=== PATIENT | female | born 1950 | race Caucasian/White ===

== ENCOUNTER → 2016-10-14 | Outpatient (CLI) | payer BC ==
[~2016-10-14] MED LIST: ALLERGY OTC PO; ASPI-391 PO; AZEL30SP NAE; CONJ0.3T3 PO; ESCI10TA17 PO; EZET10TA47 PO; FLNIN NAE; MULT-506 PO; NAPR1CAP12 PO; OXYC-57 PO; OXYC1TAB3 PO; PANT40TA PO; VENL75TA4 PO; WARF2TAB PO; ZOLP5TAB PO
== END | disposition home or self-care (01) ==
LOC: C.RDSM 14:16
PROVIDERS: ATTEND Physical Medicine & Rehabilitation Sports Medicine
DX: M17.11 Unilateral primary osteoarthritis, right knee (principal)

== ENCOUNTER → 2017-01-06 | Outpatient (CLI) | payer BC, OTHER ==
[~2017-01-06] MED LIST changes: -EZET10TA47 PO
--- NOTE | 2017-01-06 15:20 | DIAGNOSTIC IMAGING REPORT ---
RIGHT FINGER(S) MIN 2 VIEWS CLINICAL HISTORY: RIGHT 5TH FINGER INJURY Right trauma. Pain. COMPARISON: None. DISCUSSION: Fracture base middle phalanx right fifth finger. Fracture extends to the articular services. Moderate surrounding soft tissue edematous change. Potential early periosteal reaction or callus formation IMPRESSION: Subacute fracture base middle phalanx right fifth finger. Soft tissue edema. Potential early callus formation/periosteal reaction. The above report was generated using voice recognition software. It may contain grammatical, syntax or spelling errors. Electronically signed by: Lang Murillo M.D. 01/06/2017 3:18 PM Dictated Date/Time: 01/06/2017 3:17 PM
== END | disposition home or self-care (01) ==
LOC: C.RDSM 15:07
PROVIDERS: ATTEND Physician Assistant
DX: M79.644 Pain in right finger(s) (principal)

== ENCOUNTER 2017-01-29 05:31 | Inpatient (IN) | payer BC, OTHER ==
--- NOTE | 2016-10-28 09:31 | PAT Medication Instructions ---
Service Date October 28, 2016. Current Home Medication List Azelastine Hcl-Fluticasone Pro (Dymista), 1 SPRY DANIEL BID PRN for PRN Estrog Conj/Medryoxyprog Acet (Prempro 0.3MG/1.5MG), 1 TAB PO Q2D Fluticasone Propionate (Flonase Nasal [place]), 2 SPRAYS DANIEL DAILY PRN Multivitamin (Multivitamin), 1 TAB PO DAILY Naproxen Sodium (Aleve), 220 MG PO BID Pantoprazole Sodium (Protonix), 40 MG PO DAILY PRN Venlafaxine Hcl (Effexor), 19 MG PO HS Zolpidem Tartrate (Ambien), 2.5 MG PO HS [Allergy Otc], 1 TAB PO PRN Medication Instructions For Your Scheduled Surgery - Hold the following medications 7 days prior to surgery per surgeon instructions: Naproxen Sodium (Aleve), 220 MG PO BID - Hold the following medications the morning of surgery: Allergy Otc, 1 TAB PO PRN Multivitamin (Multivitamin), 1 TAB PO DAILY Estrog Conj/Medryoxyprog Acet (Prempro 0.3MG/1.5MG), 1 TAB PO Q2D - Take the following medications the morning of surgery with a sip of water: Pantoprazole Sodium (Protonix), 40 MG PO DAILY PRN Fluticasone Propionate (Flonase Nasal [place]), 2 SPRAYS DANIEL DAILY PRN Azelastine Hcl-Fluticasone Pro (Dymista), 1 SPRY DANIEL BID PRN for PRN - Take the following medications as scheduled the night before surgery: Venlafaxine Hcl (Effexor), 19 MG PO HS Zolpidem Tartrate (Ambien), 2.5 MG PO HS Azelastine Hcl-Fluticasone Pro (Dymista), 1 SPRY DANIEL BID PRN for PRN If you have any questions please call us at [phone] or [phone] ( [place]) or [phone]
[2016-10-28 10:09] LABS: BASO % 0.4 %; BASO ABS # 0.03 K/uL (0-0.2); COMPLETE YES; EOS % 2.6 %; HEMATOCRIT 43.7 % (37-47); IG% 0.3 %; LYMPH % 42.8 %; LYMPH ABS # 2.92 K/uL (1.2-3.4); MEAN CELL VOLUME 89.4 fL (80-100); MEAN CORPUSCULAR HGB CONC 32.5 g/dl (32-36); MEAN PLATELET VOLUME 10.7 fL (7.4-10.4); MONO % 8.2 %; NEUT % 45.7 %; PLATELET COUNT 238 K/uL (130-400); RED BLOOD COUNT 4.89 M/uL (4.2-5.4); WHITE BLOOD COUNT 6.82 K/uL (4.8-10.8)
[2016-10-28 10:11] LABS: URINE APPEARANCE CLEAR (CLEAR); URINE BILIRUBIN NEG (NEG); URINE COLOR YELLOW; URINE NITRITE NEG (NEG); URINE SPECIFIC GRAVITY 1.013 (1.000-1.030); UROBILINOGEN NEG (NEG); ZZUR CULT IF INDIC CLEAN CATCH NO
[2016-10-28 10:13] LABS: MANUAL MICROSCOPIC REQUIRED? NO; REVIEW REQ? NO
[2016-10-28 10:30] LABS: INR 0.9 (0.9-1.1); PROTHROMBIN TIME (PATIENT) 9.9 SECONDS (9.0-12.0)
--- NOTE | 2016-10-28 10:32 | DIAGNOSTIC IMAGING REPORT ---
CHEST PREADMISSION(PA/LAT) CLINICAL HISTORY: Preoperative chest COMPARISON STUDY: 10/15/2012 FINDINGS: The cardiac and mediastinal contours are normal. There is no evidence of focal pulmonary consolidation. There is no evidence of failure. No pleural effusions are visualized.[ IMPRESSION: No active disease in the chest. Electronically signed by: Douglas Herndon M.D. 10/28/2016 10:31 AM Dictated Date/Time: 10/28/2016 10:30 AM
[2016-10-28 10:56] LABS: BUN/CREATININE RATIO 24.3 (10-20); CALCIUM 9.7 mg/dl (8.5-10.1); CREATININE 0.99 mg/dl (0.60-1.20); POTASSIUM 4.1 mmol/L (3.5-5.1)
--- NOTE | 2016-10-30 10:04 | HISTORY & PHYSICAL EXAMINATION ---
DATE OF ADMISSION: 11/20/2016 CHIEF COMPLAINT: Right knee pain. HISTORY OF PRESENT ILLNESS: This 66-year-old white female presents to the office with complaints of right knee pain that she has had for over 2 years. Pain has become worse with time. No catching or locking. She has tried activity modification, oral anti-inflammatories, and viscosupplementation as well as oral pain medication without success. She elects to proceed with right total knee arthroplasty in hopes of alleviating her pain. Pain is worse with weightbearing. Worse with ambulation. It is affecting her ADLs. She has a history of left total knee arthroplasty and has done very well with that. She elects to proceed with the same on the right. Preoperative x-rays have been obtained. PAST MEDICAL HISTORY: Significant for basal cell carcinoma of the left face, history of melanoma, elevated lipids, history of anxiety, and osteoarthritis. PREVIOUS SURGERIES: , fallopian tube repair after ruptured tubal , left total knee arthroplasty, Mohs surgery. ALLERGIES: NKDA. CURRENT MEDICATIONS: Multivitamin daily, Effexor XR 75 mg, currently 19 mg daily, Aleve 1 tablet p.o. b.i.d. p.r.n., Prempro 0.3 mg/1.5 mg p.o. daily. 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 . No tobacco use, occasional ETOH use. FAMILY HISTORY: Significant for heart disease. REVIEW OF SYSTEMS: Significant for above stated conditions, otherwise unremarkable. PHYSICAL EXAMINATION: GENERAL: Well-developed, well-nourished elderly white female in no acute distress. Sitting on a chair. Alert and oriented. SKIN: Warm and dry with good turgor. No rashes or lesions. No ecchymosis or erythema. HEAD, EYES, EARS, NOSE, AND THROAT: Normocephalic, atraumatic. EYES: PERRLA, EOMI. Nares patent bilaterally without turbinate enlargement. Oropharynx without erythema or exudate. No lesions noted. Uvula midline. Oral mucosa moist. Good dentition. HEART: RRR. No MGR. LUNGS: Clear to auscultation bilaterally. No crackles, rhonchi or wheezing. Good air movement. ABDOMEN: Bowel sounds present x4, soft, nontender. No organomegaly. No masses. MUSCULOSKELETAL: Right knee reveals no intra-articular effusion. Full terminal extension. Flexion to greater than 100 degrees. Strength is 5/5 with fair quad tone. Focal pain with palpation over the medial joint line and the peripatellar area. No lateral joint line discomfort with palpation today. Crepitus is palpable with motion. Stable collateral ligaments. No defect in the patellar tendon or quadriceps tendon. Ambulatory with a slightly antalgic gait. NEUROLOGIC: Cranial nerves II through XII are intact. Gross sensation is intact across the lower extremities via soft touch. DATA: Radiographic images previously obtained was reviewed. She has significant joint space narrowing on the right knee. Narrowing is primarily medial. She has periarticular osteophytes, subchondral sclerosis, and joint space narrowing. There is mild lateral subluxation of the tibia on film. IMPRESSION: Right knee end-stage degenerative joint disease. PLAN: Informed written consent was obtained to proceed with right total knee arthroplasty. Postoperative prescriptions for Percocet and Coumadin will be provided at discharge from the hospital. Anticipate discharge to home with home health services. Prescription was provided for a rolling walker. Preoperative lab work, EKG, and chest x-ray have been ordered. She will obtain medical clearance from her PCP, Dr. Young.
[2017-01-06 16:42] LABS: BASO % 0.5 %; BASO ABS # 0.03 K/uL (0-0.2); COMPLETE YES; EOS % 2.9 %; HEMATOCRIT 41.7 % (37-47); IG% 0.3 %; LYMPH % 45.5 %; MEAN CELL VOLUME 87.8 fL (80-100); MEAN CORPUSCULAR HEMOGLOBIN 28.6 pg (25-34); MEAN CORPUSCULAR HGB CONC 32.6 g/dl (32-36); MEAN PLATELET VOLUME 10.4 fL (7.4-10.4); MONO % 7.3 %; NEUT % 43.5 %; PLATELET COUNT 221 K/uL (130-400); RED BLOOD COUNT 4.75 M/uL (4.2-5.4); WHITE BLOOD COUNT 5.93 K/uL (4.8-10.8)
[2017-01-06 16:57] LABS: INR 0.9 (0.9-1.1); PROTHROMBIN TIME (PATIENT) 9.9 SECONDS (9.0-12.0)
[2017-01-06 17:11] LABS: URINE APPEARANCE CLEAR (CLEAR); URINE BILIRUBIN NEG (NEG); URINE COLOR YELLOW; URINE NITRITE NEG (NEG); URINE SPECIFIC GRAVITY 1.018 (1.000-1.030); UROBILINOGEN NEG (NEG)
[2017-01-06 17:13] LABS: BUN/CREATININE RATIO 24.1 (10-20); CALCIUM 8.9 mg/dl (8.5-10.1); CREATININE 0.94 mg/dl (0.60-1.20); POTASSIUM 4.1 mmol/L (3.5-5.1)
[2017-01-06 17:28] LABS: MANUAL MICROSCOPIC REQUIRED? NO; REVIEW REQ? NO
--- NOTE | 2017-01-22 12:12 | HISTORY & PHYSICAL EXAMINATION ---
DATE OF ADMISSION: 01/29/2017 ATTENDING PHYSICIAN: Jesus Robbins MD FAMILY PHYSICIAN: Dr. Young. CHIEF COMPLAINT: Right knee pain. HISTORY OF PRESENT ILLNESS: The patient is a pleasant 66-year-old white female who presents to our office with complaints of right knee pain. She states that her knee pain has been bothering her for more than 2 years. Her pain has progressively worsened over time and expeditiously worsened over the last couple of months. She denies any catching or locking. She has tried conservative treatment, which has included activity modification, oral anti-inflammatories, viscous supplementation and oral pain medication without significant success. She has elected to proceed with an elective right total knee arthroplasty in hopes of alleviating her pain. Her pain is increased with weightbearing. She still does have pain at rest occasionally. Her pain affects her activities of daily living. She does have a history of having a left total knee arthroplasty and has done very well with this and she is hopeful for the same on the right. She is scheduled to undergo right total knee arthroplasty with Dr. Jesus Robbins on 01/29/2017. PAST MEDICAL HISTORY: 1. Basel cell carcinoma of the left side of her face. 2. History of melanoma. 3. Hyperlipidemia. 4. History of anxiety. 5. Osteoarthritis. PAST SURGICAL HISTORY: 1. History of . 2. Fallopian tube repair after ruptured tubal . 3. Status post left total knee arthroplasty. 4. Mohs surgery. CURRENT MEDICATIONS: 1. Multivitamin daily. 2. Effexor 75 mg daily. 3. Aleve 1 tab p.o. b.i.d. p.r.n. 4. Prempro 0.3 mg per 1.5 mg p.o. daily. ALLERGIES: She has no known drug allergies. 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 She is . Denies any alcohol, tobacco or drug use. FAMILY HISTORY: Significant for heart disease. REVIEW OF SYSTEMS: She denies any headaches, migraines, seizures, syncopal episodes, lightheadedness or dizziness. She denies any hearing problems or blurry vision. She denies any history of bleeding or clotting disorders, history of phlebitis, embolisms or DVT. She denies any chest pain, shortness of breath, or heart palpitations. She denies any abdominal pain, heartburn, indigestion, nausea, vomiting, diarrhea or constipation. She denies any urinary symptoms or frequent urinary tract infections. She denies any fevers, chills, changes in her weight. She denies any recent hospitalizations. PHYSICAL EXAMINATION: GENERAL: The patient is a well-developed and well-nourished female in no acute distress today. She is alert and oriented x3. She has normal mood and affect. HEENT: Head is normocephalic and atraumatic. Eyes: Extraocular movements intact. Pupils are equal, round and reactive to light. Sclerae are normal. Ears: Hearing is grossly normal. Clear ear canals with clear TMs with normal light reflex. Nose: Nares are patent bilaterally without turbinate enlargement. Oropharynx is clear without erythema or exudates. Uvula is midline. Oral mucosa is moist. Good dentition. HEART: Regular rate and rhythm. No murmurs appreciated. LUNGS: Clear to auscultation bilaterally. No adventitious sounds. No accessory muscle use. ABDOMEN: Soft, nontender, and nondistended. Bowel sounds heard in all 4 quadrants. MUSCULOSKELETAL: Right knee reveals no intraarticular effusion. Full terminal extension and flexion to greater than 100 degrees. Strength is 5/5 with fair quad tone. Focal pain with palpation of the medial joint line and the peripatellar area. No lateral joint line discomfort with palpation today. Crepitation is palpable with motion. Stable collateral ligaments. No defect in the patellar tendon or quadriceps tendon. Ambulatory with a slight antalgic gait with no assistive device. Exam of her left hand reveals a stiff left small finger at the PIP joint after sustaining an injury approximately 6 weeks ago. It is mildly tender to palpation. She has stiffness with extension and flexion. No significant deformity appreciated. Skin is intact. Capillary refill is brisk. Distal sensation is normal. RADIOLOGY IMAGES: Radiographic images previously obtained were reviewed of her bilateral knees. She has significant joint space narrowing of the right knee, primarily in the medial compartment. There are also periarticular osteophytes, subchondral sclerosis, and joint space narrowing present. There is a mild lateral subluxation of the tibia evident on the film. Radiology images of her left small finger show a subacute middle phalanx fracture in acceptable alignment with callus formation. The fracture line is still visible in places. ASSESSMENT: End-stage degenerative joint disease of her right knee. PLAN: The patient will be admitted to [facility] on 01/29/2017 and will undergo a right total knee arthroplasty with Dr. Jesus Robbins. Risks and complications of surgery were explained to the patient include, but are not limited to infection, pain, bleeding, scarring, nerve and blood vessel damage, wound problems, weakness, stiffness, incomplete relief of symptoms, blood clots, embolisms, hardware failure, wear, loosening, fracture, heart attack, stroke and . All questions were answered. Informed consent was obtained. She will be given Percocet for postoperative pain control. We will use Coumadin for DVT prophylaxis with an INR goal of 1.8-2.5. She will be on this 6 weeks postoperatively. She will have preadmission testing and obtain a preoperative CBC, PRP, PT, PTT, urinalysis and medical clearance from her family physician, Dr. Young. She previously had an EKG and chest x-ray back in October. Those do not need to be repeated. Postoperatively, she will remain in the hospital for approximately 2 days and we will ask the hospitalist to assist with any medical management as needed. Plan to discharge her home with home health services. All questions were answered today. She knows to call with any further problems or questions. MIRIAN
[~2017-01-29] VITALS: Ht 167.6 cm; Wt 85.3 kg
[2017-01-29] VITALS (7 sets, daily range): BP systolic 131–181; BP diastolic 64–85; PULSE 59–91; TEMP 36.5–36.8; O2SAT 95–99; Ht 167.6 cm; Wt 85.3 kg
[~2017-01-29 05:31] MED LIST changes: -ASPI-391 PO; -ESCI10TA17 PO; -OXYC-57 PO; -OXYC1TAB3 PO; -WARF2TAB PO
[2017-01-29] MEDS ORDERED: ESCI10TA17 PO (05:52)
[2017-01-29] MEDS ORDERED: ASPI-391 PO (05:54)
[2017-01-29] MEDS ORDERED: TRANEXAMIC ACID INJ 1,000 MG in SODIUM CHLORIDE 0.9% 100ML 100 ML IV SCH ×2 (06:00→16:00)
[2017-01-29] MEDS ORDERED: LACTATED RINGER'S 1000ML 500 ML IV ONE (06:00)
[2017-01-29] MEDS ORDERED: LACTATED RINGER'S 1000ML 1,000 ML IV SCH ×2 (06:00)
[2017-01-29] MEDS ORDERED: ROPIVACAINE 5MG/ML 30 ML 150 MG, BUPIVACAINE/EPINEPHR 0.5% MPF 30 ML, KETOROLAC TROMETH... INFIL SCH ×7 (06:00)
[2017-01-29] MEDS ORDERED: CEFAZOLIN 2000 MG/60 ML D5W 60 ML IV SCH (06:00)
--- NOTE | 2017-01-29 06:23 | History & Physical Bridge Note ---
H&P Re-Evaluation Bridge Note: I have examined the patient, reviewed the History & Physical and in the interval since the performance of the History & Physical I have noted the following changes of clinical significance: consent updated.no issues.finished UTI coverage.No changes noted
[2017-01-29] MEDS ORDERED: BUPIVACAINE 0.25% 30 ML VIAL ONE (06:26)
[2017-01-29] MEDS ORDERED: BUPIVACAINE 0.5 % 5 MG/1 ML PF 10ML VIAL ONE (06:26)
[2017-01-29] MEDS ORDERED: PROPOFOL IV EMULSION 10 MG/ML 20 ML VIAL IV ONE ×3 (06:27→08:24)
[2017-01-29] MEDS ORDERED: LIDOCAINE HCL 2% 2 ML VIAL (20MG/ML) ONE (06:27)
[2017-01-29] MEDS ORDERED: MIDAZOLAM HCL 1 MG/ML 2ML VIAL ONE (06:27)
[2017-01-29] MEDS ORDERED: ORTHO JOINT ANESTHETIC ONE (06:34)
[2017-01-29] MEDS ORDERED: POVIDONE-IODINE OP SOLN 30 ML BTL ONE (06:34)
[2017-01-29] MEDS ORDERED: EpHEDrine SULFATE 50MG/5ML SYR ONE (07:39)
[2017-01-29] MEDS ORDERED: KETAMINE HCL INJ 50 MG/ML 10 ML VIAL ONE (07:54)
[2017-01-29] MEDS ORDERED: SODIUM CHLORIDE 0.9% INJ 10 ML VIAL ONE (07:56)
[2017-01-29] MEDS ORDERED: EpHEDrine SULFATE INJ 50 MG/ML AMP IV PRN (08:15)
[2017-01-29] MEDS ORDERED: ATROPINE SULFATE 0.1 MG/ML 5ML SYR IV PRN (08:15)
[2017-01-29] MEDS ORDERED: ONDANSETRON INJ 2 MG/ML 2 ML VIAL IV PRN ×2 (08:15→08:45)
--- NOTE | 2017-01-29 08:33 | [facility] Post Operative Brief Note ---
Immediate Operative Summary Operative Date Jan 29, 2017. Pre-Operative Diagnosis End-Stage Degenerative Joint Disease Right Knee Post-Operative Diagnosis End-Stage Degenerative Joint Disease Right Knee Procedure(s) Performed Right Total Knee Arthroplasty Surgeon Dr. Robbins Piano Instructor Surgeon(s) LUKAS Nina Estimated Blood Loss 50cc Findings severe djd medially Fluids (cc crystalloids) 1200cc Specimens A. Right Knee Bone and Tissue Drains none Anesthesia spinal/sedation Complication(s) None Disposition Recovery Room / PACU
[2017-01-29] MEDS ORDERED: FLUTICASONE PROPIONATE NA SPR 16 GM BTL NAE PRN (08:45)
[2017-01-29] MEDS ORDERED: METOCLOPRAMIDE HCL INJ 5 MG/ML 2 ML VIAL IV PRN (08:45)
[2017-01-29] MEDS ORDERED: DiphenhydrAMINE HCL 50 MG/ML VIAL IV PRN (08:45)
[2017-01-29] MEDS ORDERED: MAGNESIUM HYDROXIDE SUSP 30 ML UDC PO PRN (08:45)
[2017-01-29] MEDS ORDERED: MoRPHine SULFATE 2 MG/ML CARP IV PRN (08:45)
[2017-01-29] MEDS ORDERED: ACETAMINOPHEN IV 100 ML IV PRN (08:45)
[2017-01-29] MEDS ORDERED: ALUMINUM/MAGNESIUM/SIMETH (MAALOX MAX) 30 ML UDC PO PRN (08:45)
[2017-01-29] MEDS ORDERED: ACETAMINOPHEN 325 MG TAB PO PRN (08:45)
[2017-01-29] MEDS ORDERED: BISACODYL 10 MG SUPP PR PRN (08:45)
--- NOTE | 2017-01-29 08:45 | OPERATIVE REPORT ---
DATE OF OPERATION: 01/29/2017 PREOPERATIVE DIAGNOSIS: Severe osteoarthritis, right knee with varus flexion deformity. POSTOPERATIVE DIAGNOSIS: Same. OPERATION PERFORMED: Cemented right total knee replacement. SURGEON: Dr. Robbins. RAIL CAR PAINTER/SANDBLASTER: Kristopher Youssef PA-C. No resident or fellow available. SUMMARY OF IMPLANTS: Size 3 posterior cruciate substituting femur, size 3 rotating tibial keel platform. Oval domed 3 pegged patella size 35, tibial insert size 3 12.5 and 2 bags of Palacos G cement. ESTIMATED BLOOD LOSS: 50 mL. CRYSTALLOID: 1200 mL. PERIOPERATIVE SITUATION: Medically cleared female with intractable knee pain with x-rays revealing end-stage disease, medial joint space narrowing, varus deformity, lateral subluxation of the tibia and patellofemoral disease. OPERATION AND FINDINGS: OPERATION: The patient appropriately identified, site verified, consent verified, 2 grams of Ancef confirmed as being given. The right lower extremity was prepped and draped in usual routine fashion. Tourniquet was inflated to 300 mmHg after exsanguination of the limb with a rubber Esmarch bandage for a total of approximately 55 minutes. Midline exposure was utilized. Parapatellar arthrotomy performed. Synovectomy completed. Appropriate soft tissue releases and osteophytes resected. Distal femur was then resected 14 mm, proximal tibia then resected 4 mm. The extension gap was excellent. This femur was sized just over 3, was measured that and cut 3. There was no notching. The flexion gap was then checked. It was a little tight medially. After appropriate soft tissue releases it was excellent. The femur was then cut, anterior and posterior condylar and chamfer cuts and the box cut made and the size 3 fit well. The tibia was then broached and reamed to a size 3 and 10 and 12.5 mm spacer were trialed. The 12.5 gave a little bit more flexion stability in deep flexion, so that was elected. It did not eliminate any extension. The patella was sized to a 35. It was resected leaving 16 mm. The trial tracked extremely well. All trial implants were then removed. The wound was irrigated with Betadine Pulsavac injected with Orthomix and then the permanents cemented into position. After 12 minutes, the tourniquet deflated. After 14 minutes the knee flexed. Minor cement removal and irrigation occurred and then the permanent liner seated. The knee reduced and closed with #1 Ethibond, #1 Vicryl, 2-0 Vicryl and stainless steel clips. Appropriate soft tissue dressing applied and the patient transferred to recovery room in satisfactory condition having tolerated the procedure well. DVT prophylaxis per protocol. I attest to the content of the Intraoperative Record and any orders documented therein. Any exception s are noted below.
[2017-01-29] MEDS ORDERED: ZOLPIDEM TARTRATE 5 MG TAB PO PRN ×2 (09:00→21:00)
[2017-01-29] MEDS: PANTOprazole SOD 40 MG TAB PO SCH (09:00)
[2017-01-29] MEDS ORDERED: MoRPHine SULFATE 4 MG/ML 1 ML CARP\\VIAL IV PRN (09:00)
--- NOTE | 2017-01-29 09:32 | Anesthesiology Progress Note ---
Anesthesia Post Op Note Date & Time Jan 29, 2017 at 09:32 Vital Signs Pain Intensity: 0 Vital Signs Past 12 Hours Date Time Temp Pulse Resp B/P (MAP) Pulse Ox O2 Delivery O2 Flow Rate FiO2 01/29/17 09:13 36.9 62 18 127/61 (78) 97 Room Air 01/29/17 08:57 67 21 92 01/29/17 08:57 68 21 01/29/17 08:56 126/59 01/29/17 08:52 62 10 01/29/17 08:52 61 10 98 01/29/17 08:51 107/57 01/29/17 08:47 69 21 01/29/17 08:47 68 21 91 01/29/17 08:46 130/94 01/29/17 08:43 120/55 01/29/17 08:42 74 19 01/29/17 08:42 36.2 76 18 120/55 93 Room Air 01/29/17 08:42 72 19 95 01/29/17 05:55 36.5 59 18 153/82 Room Air 98 Notes Mental Status: alert / awake / arousable, participated in evaluation Pt Amnestic to Procedure: Yes Nausea / Vomiting: adequately controlled Pain: adequately controlled Airway Patency, RR, SpO2: stable & adequate BP & HR: stable & adequate Hydration State: stable & adequate Neuraxial Anesthesia: was administered, sensory block is resolving Anesthetic Complications: no major complications apparent
--- NOTE | 2017-01-29 09:33 | DIAGNOSTIC IMAGING REPORT ---
RIGHT KNEE 1 OR 2 VIEWS ROUTINE CLINICAL HISTORY: Postoperative evaluation. COMPARISON: Right knee radiographs October 14, 2016. FINDINGS: Alignment of the total right knee arthroplasty is anatomic. There is no periprosthetic fracture or unexpected radiopaque foreign body. Skin meg are present. IMPRESSION: Expected findings following total right knee arthroplasty. Electronically signed by: Horace Mann M.D. 01/29/2017 9:32 AM Dictated Date/Time: 01/29/2017 9:29 AM
[2017-01-29] MEDS ORDERED: D5W AND 1/2NSS + 20MEQ KCL 1,000 ML IV SCH (10:30)
[2017-01-29] MEDS: OXYCODONE HCL IR 5 MG TAB (IMMEDIATE RELEASE) PO PRN ×4 (11:48→20:57)
[2017-01-29] MEDS: FERROUS GLUCONATE 324 MG TAB PO SCH ×2 (11:51→17:39)
[2017-01-29] MEDS: DOCUSATE SODIUM 100 MG CAP PO SCH ×2 (11:51→20:58)
[2017-01-29] MEDS: MULTIVITAMIN TAB PO SCH (11:51)
[2017-01-29] MEDS: KETOROLAC TROMETHAMINE 15 MG/ML VIAL IV. SCH ×3 (11:51→23:30)
--- NOTE | 2017-01-29 13:21 | [facility] Operative Report ---
Operative Report Operative Date Jan 29, 2017. Pre-Operative Diagnosis End-Stage Degenerative Joint Disease Right Knee Post-Operative Diagnosis End-Stage Degenerative Joint Disease Right Knee Procedure(s) Performed Right Total Knee Arthroplasty Surgeon Dr. Robbins Electrical Calibrator Surgeon(s) LUKAS Nina Estimated Blood Loss 50cc Findings Right knee DJD Fluids 1200cc Specimens A. Right Knee Bone and Tissue Drains none Anesthesia spinal/sedation Complication(s) None Disposition Recovery Room / PACU Indications This 66-year-old white female presented to the office complaints of intractable right knee pain. She previously underwent left total knee arthroplasty and did well with that. She elected to proceed with the same on the right. She had tried conservative care including activity modification, oral anti- inflammatories, viscous supplementation, cortisone injections, and oral pain medication without success. Preoperative imaging was obtained. Description of Procedure Patient was administered a spinal anesthetic and then taken to the operating room where she was given sedation. She was prepped and draped in usual sterile fashion. Please see Dr. Robbins's operative report for specifics of the procedure. I was present for the entire case from initial patient positioning through final wound closure. Assistance was provided in tissue traction, hemostasis, trial implant placement, final implant placement, and final wound closure. Patient was taken to the recovery room in satisfactory condition. I attest to the content of the Intraoperative Record and any orders documented therein. Any exceptions are noted below.
--- NOTE | 2017-01-29 13:38 | Progress Note ---
Progress Note Date of Service Jan 29, 2017. Progress Note Postop check. She is doing well is no major issues. She denies headache shortness breath fever chills nausea or vomiting. Vital signs are stable she's afebrile. Neurovascular check femoral sciatic nerve is normal. Wound dressing clean dry and intact. Can do a straight leg raise. Postop x-rays looked excellent. Assessment doing well status post right total knee replacement continue with care pathway.
[2017-01-29] MEDS ORDERED: OXYC-57 PO (15:21)
[2017-01-29] MEDS ORDERED: WARF2TAB PO (15:21)
[2017-01-29] MEDS: CEFAZOLIN IV 2,000 MG in DEXTROSE 5% 50ML 50 ML IV SCH ×2 (15:44→23:31)
[2017-01-29] MEDS ORDERED: WARFARIN SOD 5 MG TAB PO SCH (16:00)
[2017-01-29] MEDS ORDERED: ESCITALOPRAM OXALATE 10 MG TAB PO SCH (21:00)
[2017-01-30] MEDS: OXYCODONE HCL IR 5 MG TAB (IMMEDIATE RELEASE) PO PRN ×2 (01:04→07:46)
[2017-01-30 03:00] VITALS: BP 125/72; PULSE 84; TEMP 36.8; O2SAT 94
[2017-01-30] MEDS: KETOROLAC TROMETHAMINE 15 MG/ML VIAL IV. SCH (05:31)
[2017-01-30 05:44] LABS: HEMATOCRIT 34.7 % (37-47); MEAN CELL VOLUME 88.5 fL (80-100); MEAN CORPUSCULAR HEMOGLOBIN 29.3 pg (25-34); MEAN CORPUSCULAR HGB CONC 33.1 g/dl (32-36); MEAN PLATELET VOLUME 10.8 fL (7.4-10.4); PLATELET COUNT 184 K/uL (130-400); RED BLOOD COUNT 3.92 M/uL (4.2-5.4); WHITE BLOOD COUNT 8.82 K/uL (4.8-10.8)
[2017-01-30 05:51] LABS: PROTHROMBIN TIME (PATIENT) 11.1 SECONDS (9.0-12.0)
[2017-01-30 06:16] LABS: BUN/CREATININE RATIO 17.4 (10-20); CALCIUM 8.3 mg/dl (8.5-10.1); CREATININE 0.99 mg/dl (0.60-1.20); POTASSIUM 3.9 mmol/L (3.5-5.1)
--- NOTE | 2017-01-30 06:59 | PROGRESS NOTE ---
DATE: 01/30/2017 Postop day #1 status post right total knee replacement. The patient denies chest pain, shortness of breath, fevers, chills, nausea, vomiting. Vital signs are stable. She is afebrile. Neurovascular check is within normal limits, femoral sciatic nerve. Hematocrit stable in the mid 30 range. Electrolytes stable. INR is 1.0. ASSESSMENT: Doing well status post right total knee replacement. Discharge today. Social service PT, OT, urgent consults, Coumadin 4 mg at discharge, per INR today. Give dose before leaving and then start 4 mg daily on Friday, check INR on Friday.
--- NOTE | 2017-01-30 07:03 | DISCHARGE SUMMARY ---
CHIEF COMPLAINT: Right knee pain. HISTORY OF PRESENT ILLNESS: The patient underwent elective right total knee replacement. At this point in time her hospital course has been uneventful. She is ambulating. She is eating, drinking. She has no nausea or vomiting. PAST MEDICAL HISTORY: Remarkable for basal cell carcinoma, history of melanoma, elevated lipids, history of anxiety, osteoarthritis. PAST SURGICAL HISTORY: Includes , fallopian tube repair after ruptured tubal , left total knee replacement and Mohs surgery. ALLERGIES: None. PREADMISSION MEDICATIONS: Include multivitamin, Effexor, Aleve and Prempro. She will discontinue the Aleve, add p.r.n. Percocet and Coumadin 4 mg daily. 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 She is . She does no tobacco or alcohol. REVIEW OF SYSTEMS: Reveals no chest pain, shortness of breath, fevers, chills, nausea or vomiting. ASSESSMENT: Overall, doing well status post total knee replacement, right. Will discharge to home today. Home services Coumadin 4 mg daily, keep INR 1.8-2.2. She will receive a dose of Coumadin today prior to discharge per nomogram and then transition to 4 mg on Friday, Friday, and Friday and check INR on Friday. well services operator, PT, OT to see prior to discharge.
[2017-01-30 07:22] VITALS: BP 106/65; PULSE 65; TEMP 36.9; O2SAT 96
[2017-01-30] MEDS ORDERED: DEXAMETHASONE INJ 10 MG in SYRINGE 0 ML IV SCH (07:30)
[2017-01-30] MEDS: PANTOprazole SOD 40 MG TAB PO SCH (07:46)
[2017-01-30] MEDS: DOCUSATE SODIUM 100 MG CAP PO SCH (07:47)
[2017-01-30] MEDS: FERROUS GLUCONATE 324 MG TAB PO SCH (07:47)
[2017-01-30] MEDS: MULTIVITAMIN TAB PO SCH (07:47)
[2017-01-30] MEDS ORDERED: OXYC1TAB3 PO (08:21)
--- NOTE | 2017-01-30 08:22 | Discharge Instructions ---
Discharge Instructions Date of Service Jan 29, 2017. Admission Reason for Admission: Right Knee Degenerative Joint Disease Discharge Discharge Diagnosis / Problem: Right knee s/p total knee replacement Discharge Goals Goal(s): Decrease discomfort, Improve function, Increase independence Activity Recommendations Activity Limitations: as noted below Lifting Limitations: gradually increase as tolerated Exercise/Sports Limitations: until after follow-up appointment Shower/Bathe: keep incision dry Driving or Machine Use: No driving until cleared by Dr. Robbins Weightbearing Status: Right weightbearing (as tolerated) . Instructions / Follow-Up Instructions / Follow-Up New Medicine: * You will likely be taking one or more of these medications: 1. Percocet - Take, as directed, when you need it, every four to six hours to control your pain. 2. Coumadin - Thins your blood to lessen the chance of forming a blood clot. The dose of this is different for each person and is based on your blood tests that are done twice a week. * The most common side effects of pain medicine and iron are nausea and constipation. If nausea or constipation is too much of a problem or if you have any questions about your new medicines or doses, call [facility] at . We will try to help you manage these issues. VERY IMPORTANT TO READ AND REVIEW" Blood Clots and Blood Thinning Medicine: * You are given Coumadin during the immediate post-operative period to lessen the risk of blood clots forming in your legs and/or lungs. Coumadin is usually given for six weeks after surgery. * The prescription is for 2 mg tablets. At discharge, you should understand your dose and take it all at the same time every day, preferably after dinner. * You need to get your blood checked 1 - 2 times per week for six weeks or as directed. * If your dose needs to change, we will call you. Do not take your medication on the day of the blood test until we call you. Pain: * The immediate post-operative period after knee replacement surgery is often quite painful. * You are given a prescription for pain medicine. You should take it, as directed, when you need it, especially before physical therapy and before going to bed. Pain that interferes with sleep is very common and can last several months. * You will likely need pain medicine for the first four to six weeks. It will not stop all of the pain. The pain will lessen and as you feel better, you may change to milder pain medicine such as Tylenol. * The most common side effects of pain medicine are nausea and constipation, so don't take more than you need. Physical Therapy: * You will have physical therapy two or three times each week for four to six weeks after your surgery in order to regain your knee range of motion and to retrain your knee to work properly. * It is just as important to make sure you are getting your knee perfectly straight as it is to regain your knee bend. * Taking a pain pill an hour before therapy can help you have a more productive and comfortable therapy session if needed. Home Exercise: * You were shown a series of exercises (heel props, heel slides, etc.) in the hospital. Do these exercises three to four times each day including the exercises you were shown in physical therapy. Walking: * Get up and walk several times each day. For the first four weeks, try not to stand or walk for more than one hour at a time. If you do stand or walk for more than one hour, you will not hurt anything, but your knee and leg will likely swell. * As you feel comfortable, you may change from the walker or crutches to a cane and then to independent walking. SELF CARE INSTRUCTIONS AFTER TOTAL KNEE REPLACEMENT A. You may need to continue a physical therapy program after discharge from the hospital. There are several options available to you. Your doctor will assist you in selecting the best one for you. 1. An out-patient facility 2 to 3 times a week for therapy or home therapy. 2. Continue working on all exercises taught to you in the hospital. Your goals should be to increase bending of your knee to 90 degrees and beyond and to fully straighten your knee. B. You may progress at your own pace from walking with a walker or crutches to a cane; then to no assistive devices. C. Make walking a part of your daily routine. Be up as much as comfortable with rest periods throughout the day. Rest with leg elevation is very important. Use the ice wrap frequently for the first 3-4 weeks. D. There are no restrictions on activities. You may ride in a car, shop, participate in blast furnace keeper helper and all social activities. E. Wear the long elastic stockings (FERNANDO hose) 20 hours a day for six weeks after surgery. They can be removed several times a day for laundering and for a shower. F. Do not place a pillow behind your knee when resting. A pillow at your ankle is okay. VERY IMPORTANT TO READ AND REVIEW A. Take Coumadin, Aspirin or Lovenox (blood thinning medications) as directed by your doctor. If on Coumadin, have a pro-time (blood test) drawn according to your doctor's instructions. This will tell the doctor how well the Coumadin is thinning your blood. 1. YOU WILL BE GIVEN AN ORDER AT DISCHARGE FOR PT/INR (BLOOD WORK). PLEASE HAVE THIS DONE INSTRUCTED. PLEASE CALL OUR OFFICE AFTER YOUR BLOODWORK IS COMPLETE SO WE CAN TRACK YOUR RESULTS. IF YOU ARE GOING TO OUTPATIENT PHYSICAL THERAPY, YOU WILL NEED TO GO TO OUTPATIENT TESTING TO HAVE IT DRAWN. B. There are a few signs you need to watch for after you are home. Call [facility] if you notice any of the followin. Increased severe knee pain. Some pain is expected especially when you exercise. 2. Increased swelling in your leg or knee; pain or swelling of the calf muscle in either lower leg. 3. Any fluid drainage from the incision. 4. Shortness of breath or chest pain. C. Please call [facility] at if you have any concerns or questions about your operation or recovery. The doctor or his nurse will return your call promptly. D. You must take antibiotics before dental work, bladder, bowel or other surgery. Call the office to obtain a prescription at least 2 days prior to your appointment. * CALL IF INCREASED PAIN, REDNESS, DRAINAGE OR FEVER GREATER THAT 101. * Sutures should be removed 12-14 days after surgery unless you are on chronic steriods, then it will be 14-18 days after surgery. Call your doctor if: * Temperature above 101 degrees F. * Pain not relieved by pain medicine ordered. * Increased drainage or redness from incision. * Notify your doctor with any questions or concerns. Current Hospital Diet Patient's current hospital diet: Regular Diet Discharge Diet Recommended Diet: Regular Diet Procedures Procedures Performed: Right Total Knee Arthroplasty Pending Studies Studies pending at discharge: no Medical Emergencies . Who to Call and When: Medical Emergencies: If at any time you feel your situation is an emergency, please call 911 immediately. . Non-Emergent Contact Non-Emergency issues call your: Primary Care Provider, Surgeon Call Non-Emergent contact if: temperature is above 101, wound has increased drainage, wound has increased redness, wound has increased pain, you have any medication questions . "Provider Documentation" section prepared by Kristopher Youssef PA-C. . VTE Core Measure Inpt VTE Proph given/why not?: Warfarin (Coumadin), T.E.D. Stockings, SCD's [place] Drug Monitoring Program Search Results: no issues identified
[2017-01-30 08:23] VITALS: BP 106/65; PULSE 65; TEMP 36.9; O2SAT 96
--- NOTE | 2017-01-30 08:25 | Orthopedic Progress Note ---
Orthopedic Progress Note Date of Service Jan 30, 2017. Subjective Post OP Day: 1 Reports: feeling well, Denies: complaints, chest pain, SOB, nausea / vomiting, light headedness, calf pain Objective calves soft nontender, N/V intact, capillary refill less than 2 sec., dressing C /D/I, incision C/D/I, A&O x3, toes mobile, CMS intact scant drainage on dressings. able to do a straight leg raise. Date Time Temp Pulse Resp B/P (MAP) Pulse Ox O2 Delivery O2 Flow Rate FiO2 01/30/17 07:30 Room Air 01/30/17 07:22 36.9 65 18 106/65 (79) 96 Room Air 01/30/17 03:00 36.8 84 18 125/72 (89) 94 Room Air 01/29/17 23:24 36.8 76 18 143/74 (97) 97 Room Air 01/29/17 23:20 Room Air 01/29/17 15:15 Room Air 01/29/17 14:57 36.5 91 164/81 (108) 97 Room Air 01/29/17 12:44 76 18 149/77 (101) 95 Room Air 01/29/17 11:45 36.6 78 16 181/85 (117) 95 Room Air 01/29/17 10:41 59 18 131/70 (90) 99 Room Air 01/29/17 09:45 95 Room Air 01/29/17 09:45 95 Room Air 01/29/17 09:45 36.7 65 18 133/64 (87) 95 Room Air 01/29/17 09:33 62 11 01/29/17 09:33 64 11 93 01/29/17 09:31 129/67 01/29/17 09:28 64 21 01/29/17 09:28 64 21 99 01/29/17 09:26 131/71 01/29/17 09:23 60 13 01/29/17 09:23 57 13 97 01/29/17 09:21 132/54 01/29/17 09:18 58 13 01/29/17 09:18 57 13 127/61 97 01/29/17 09:16 152/57 01/29/17 09:13 58 10 98 01/29/17 09:13 36.9 62 18 127/61 (78) 97 Room Air 01/29/17 09:13 59 10 01/29/17 09:11 122/62 01/29/17 09:08 68 17 95 01/29/17 09:08 65 17 01/29/17 09:06 132/64 01/29/17 09:03 62 17 99 01/29/17 09:03 62 17 01/29/17 09:01 117/59 01/29/17 08:58 64 17 01/29/17 08:58 66 17 97 01/29/17 08:57 67 21 92 01/29/17 08:57 68 21 01/29/17 08:56 126/59 01/29/17 08:52 62 10 01/29/17 08:52 61 10 98 01/29/17 08:51 107/57 01/29/17 08:47 69 21 01/29/17 08:47 68 21 91 01/29/17 08:46 130/94 01/29/17 08:43 120/55 01/29/17 08:42 74 19 01/29/17 08:42 36.2 76 18 120/55 93 Room Air 01/29/17 08:42 72 19 95 Laboratory Results 24 Hours: Test 01/30/17 04:59 Hematocrit 34.7 % Hemoglobin 11.5 g/dL Prothromb Time International Ratio 1.0 Prothrombin Time 11.1 SECONDS Assessment & Plan Assessment: Right knee post op day 1 total knee arthroplasty Plan: PT/OT today coumadin per nomogram dressing changed today by me-wound looks very good plan for D/C to home today with home health continue immobilizer for protection today and tomorrow when out of bed. follow up in the office in 2 weeks for staple removal. Discharge Planning Discharge Planning: home with home health Pain Management: Oxy IR DVT Prophylaxis: TEDs, SCDs, Coumadin Therapy: Physical Therapy
[2017-01-30] MEDS ORDERED: WARFARIN SOD 5 MG TAB PO STA (10:35)
== END 2017-01-30 10:57 | disposition home health service (06) | DRG 470 ==
LOC: C.ACU 05:31 → C.3E 08:50 → ENRESERV 09:13
PROVIDERS: ADMIT Physical Medicine & Rehabilitation Sports Medicine; ATTEND Physical Medicine & Rehabilitation Sports Medicine
PROC: 0SRC0J9 Replacement of Right Knee Joint with Synthetic Substitute, Cemented, Open Approach (ICD-10-PCS; principal; 2017-01-29 07:00)
DX: M17.11 Unilateral primary osteoarthritis, right knee (principal); E78.5 Hyperlipidemia, unspecified; F41.9 Anxiety disorder, unspecified; M21.161 Varus deformity, not elsewhere classified, right knee; Z96.651 Presence of right artificial knee joint; E66.9 Obesity, unspecified; K21.9 Gastro-esophageal reflux disease without esophagitis; Z68.30 Body mass index [BMI] 30.0-30.9, adult; Z79.51 Long term (current) use of inhaled steroids; Z79.1 Long term (current) use of non-steroidal anti-inflammatories (NSAID); Z79.890 Hormone replacement therapy

== ENCOUNTER → 2017-03-10 | Outpatient (CLI) | payer BC ==
[~2017-03-10] MED LIST changes: -CONJ0.3T3 PO; +ESCI10TA17 PO; -NAPR1CAP12 PO; +OXYC1TAB3 PO; -VENL75TA4 PO; +WARF2TAB PO
== END | disposition home or self-care (01) ==
LOC: C.RDSM 13:00
PROVIDERS: ATTEND Physical Medicine & Rehabilitation Sports Medicine
DX: Z96.651 Presence of right artificial knee joint (principal); M25.561 Pain in right knee